=== PATIENT | female | born 1970 | race African-American/Black ===

== ENCOUNTER 2021-08-18 20:07 | Emergency (ER) | payer MEDICAID ==
[~2021-08-18] VITALS: Ht 172.7 cm; Wt 94.5 kg
[~2021-08-18 20:07] MED LIST: CIPR-263 MT
[2021-08-18 23:30] LABS: BASOPHILS % 0.2 % (0.0-2.0); EOSINOPHILS % 0.5 % (0.0-5.0); HEMOGLOBIN. 12.5 g/dL (12.0-16.0); LYMPHOCYTES % 29.7 % (20.0-50.0); MEAN CORPUSCULAR HEMOGLOBIN 29.5 pg (28.0-32.0); MEAN CORPUSCULAR VOLUME 89.4 fL (81.0-99.0); MONOCYTES % 7.2 % (2.0-8.0); NEUTROPHILS % 62.4 % (40.0-76.0); PLATELET 237 x1000/uL (130-400); RED BLOOD CELL COUNT 4.25 mill/uL (4.2-5.4); RED CELL DISTRIBUTION WIDTH 13.5 % (11.6-14.6)
[2021-08-18] MEDS ORDERED: ASPIRIN 81MG TABLET PO ONE (23:30)
[2021-08-18] MEDS ORDERED: AMLODIPINE 5MG TABLET PO ONE (23:30)
[2021-08-18 23:35] LABS: CHLORIDE 108 mEq/L (98-107)
[2021-08-19 00:04] LABS: HCG SCREEN NEGATIVE
[2021-08-19 00:33] LABS: CLARITY URINE CLEAR (CLEAR); COLOR URINE YELLOW (YELLOW); KETONES URINE TRACE (NEGATIVE); LEUKOCYTE ESTERASE URINE NEGATIVE (NEGATIVE); NITRITE URINE POSITIVE (NEGATIVE); OCCULT BLOOD URINE NEGATIVE (NEGATIVE); PH URINE 7.5 (4.5-8.0); PROTEIN URINE 1+ (NEGATIVE)
[2021-08-19] MEDS ORDERED: CEFTRIAXONE 1 G PREMIX 50 ML IV ONE (01:15)
[2021-08-19] MEDS ORDERED: LEVO750T46 MT (01:37)
[2021-08-19] MEDS ORDERED: CEFTRIAXONE SODIUM 1 G/VIAL IM ONE (01:45)
[2021-08-19] MEDS ORDERED: LIDOCAINE HCL 1% 20ML VIAL (Pyxis) INJ INFIL ONE (01:45)
[2021-08-19] MEDS ORDERED: CLONIDINE 0.2MG TABLET PO ONE (01:45)
[2021-08-19 02:34] VITALS: BP 155/87
== END 2021-08-19 02:37 | disposition home or self-care (01) ==
LOC: ER 20:07
DX: R07.89 Other chest pain (principal); R05.9 Cough, unspecified; N39.0 Urinary tract infection, site not specified; I10 Essential (primary) hypertension; E78.00 Pure hypercholesterolemia, unspecified; F17.290 Nicotine dependence, other tobacco product, uncomplicated; Z98.51 Tubal ligation status; Z20.822 Contact with and (suspected) exposure to COVID-19
CPT/HCPCS: 36415; 71045; 80053; 81003; 81025; 84484; 84703; 85025; 87426; 93005; 96372; 99285; J0696; J3490

== ENCOUNTER 2022-08-18 08:22 | Emergency (ER) | payer OTHER, MEDICAID ==
[~2022-08-18] VITALS: Ht 172.7 cm; Wt 99.0 kg
[~2022-08-18 08:22] MED LIST changes: +LEVO750T68 MT
[2022-08-18 08:33] VITALS: BP 189/118
[2022-08-18] MEDS ORDERED: ACETAMINOPHEN 325MG TABLET PO ONE (09:00)
[2022-08-18] MEDS ORDERED: TOPUD MT (10:19)
== END 2022-08-18 10:30 | disposition home or self-care (01) ==
LOC: ER 08:22
DX: S52.121A Displaced fracture of head of right radius, initial encounter for closed fracture (principal); W18.39XA Other fall on same level, initial encounter; Y93.89 Activity, other specified; Y92.89 Other specified places as the place of occurrence of the external cause; Y99.8 Other external cause status; E78.00 Pure hypercholesterolemia, unspecified; I10 Essential (primary) hypertension; Z98.51 Tubal ligation status
CPT/HCPCS: 29105; 73060; 73080; 99284; A4565

== ENCOUNTER 2022-09-03 12:35 | Emergency (ER) | payer OTHER, MEDICAID ==
[~2022-09-03] VITALS: Ht 172.7 cm; Wt 100.5 kg
[~2022-09-03 12:35] MED LIST changes: +TOPUD MT
[2022-09-03] MEDS ORDERED: ACET-2708 MT (15:31)
[2022-09-03 16:03] VITALS: BP 205/120
== END 2022-09-03 16:05 | disposition home or self-care (01) ==
LOC: ER 12:35
DX: S50.01XA Contusion of right elbow, initial encounter (principal); W18.30XA Fall on same level, unspecified, initial encounter; Y93.89 Activity, other specified; Y92.89 Other specified places as the place of occurrence of the external cause; Y99.8 Other external cause status
CPT/HCPCS: 73080; 99283

== ENCOUNTER 2024-12-26 14:33 | Emergency (ER) | payer MEDICARE, MEDICAID ==
[~2024-12-26] VITALS: Ht 172.7 cm; Wt 108.0 kg
[~2024-12-26 14:33] MED LIST changes: +ACET-2708 MT
[2024-12-26 14:41] VITALS: TEMP 36.6; O2SAT 99
[2024-12-26] MEDS ORDERED: ACET-2708 MT (16:40)
[2024-12-26 17:32] VITALS: BP 179/98; PULSE 92; RESP 18; O2SAT 100
== END 2024-12-26 17:35 | disposition home or self-care (01) ==
LOC: ER 14:33
DX: E78.00 Pure hypercholesterolemia, unspecified (principal); I10 Essential (primary) hypertension; Z98.51 Tubal ligation status; Z88.6 Allergy status to analgesic agent; Z79.899 Other long term (current) drug therapy; M79.674 Pain in right toe(s); W22.8XXA Striking against or struck by other objects, initial encounter; Y93.89 Activity, other specified; Y92.89 Other specified places as the place of occurrence of the external cause; Y99.8 Other external cause status
CPT/HCPCS: 99283; 73630; A6449